=== PATIENT | female | born 1950 | race Caucasian/White ===

== ENCOUNTER 2016-07-27 15:59 | Emergency (ER) | payer MEDICARE, OTHER ==
[2016-07-27] MEDS ORDERED: ALBUTEROL NEB 2.5 MG/3 ML INH STA (18:15)
[2016-07-27] MEDS ORDERED: DEXAMETHASONE 10 MG/ML VIAL PO STA (18:15)
[2016-07-27] MEDS ORDERED: ALBUTEROL NEB 2.5 MG/3 ML INH ONE (18:19)
[2016-07-27] MEDS ORDERED: DEXAMETHASONE 10 MG/ML VIAL ONE (18:30)
[2016-07-27] MEDS ORDERED: guaiFENesin/CODEINE 5 ML UDC PO STA (21:40)
[2016-07-27] MEDS ORDERED: guaiFENesin/CODEINE 5 ML UDC ONE (21:42)
== END 2016-07-27 21:48 | disposition home or self-care (01) ==
DX: J45.21 Mild intermittent asthma with (acute) exacerbation (principal); R03.0 Elevated blood-pressure reading, without diagnosis of hypertension
CPT/HCPCS: 36415; 71020; 80048; 83880; 84484; 85025; 93005; 93010; 94640; 99284; A9270; J7613